=== PATIENT | male | born 1965 ===

== ENCOUNTER 2021-05-24 21:48 | Emergency (ER) | payer MEDICAID, OTHER ==
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
[2021-05-25] MEDS: Sodium Chloride 0.9% 1,000 ML IV SCH ×3 (00:16→02:18)
[2021-05-25] MEDS: Ketorolac 30 MG/ML SDV IVPUSH ONE (02:13)
[2021-05-25] MEDS: Morphine 2 MG/ML SYRINGE IVPUSH ONE (02:15)
== END 2021-05-25 02:55 ==
LOC: FB.ED 21:48
DX: S27.0XXA Traumatic pneumothorax, initial encounter (principal); S22.42XA Multiple fractures of ribs, left side, initial encounter for closed fracture; S42.115A Nondisplaced fracture of body of scapula, left shoulder, initial encounter for closed fracture; F10.129 Alcohol abuse with intoxication, unspecified; E87.1 Hypo-osmolality and hyponatremia; Y90.7 Blood alcohol level of 200-239 mg/100 ml; V86.59XA Driver of other special all-terrain or other off-road motor vehicle injured in nontraffic accident, initial encounter
CPT/HCPCS: 36415; 70450; 71101; 71250; 72125; 73030; 80053; 80305; 80307; 85025; 85610; 96374; 96375; 99285; J1885; J2270; J7030; 70460

== ENCOUNTER 2021-07-24 22:11 | Emergency (ER) | payer SELFPAY ==
[2021-07-24 22:31] VITALS: BP 142/89; PULSE 85
== END 2021-07-24 22:42 | disposition left against medical advice (07) ==
LOC: FB.ED 22:11
DX: Z53.21 Procedure and treatment not carried out due to patient leaving prior to being seen by health care provider (principal)